=== PATIENT | male | born 1950 | race Caucasian/White ===

== ENCOUNTER → 2017-07-21 | Outpatient (CLI) | payer MEDICARE, BC | LOC: KOH-I 10:14 | DX: M25.561 Pain in right knee (principal); M25.461 Effusion, right knee | CPT/HCPCS: 73562 ==

== ENCOUNTER 2021-04-25 10:38 | Observation (INO) | payer BC, MEDICARE ==
[~2021-04-25] VITALS: Ht 180.3 cm; Wt 101.6 kg
[2021-04-25 11:08] LABS: HEMOGLOBIN 10.6 gm/dl (14.0-17.5); RED BLOOD COUNT 3.52 M/UL (4.20-5.50)
[2021-04-25 11:42] LABS: BUN/CREATININE RATIO 21 (0-10)
[2021-04-25] MEDS ORDERED: LOTREL 5-10 MG1 EACH PO (13:34)
[2021-04-25 14:54] LABS: HEMOGLOBIN 9.2 gm/dl (14.0-17.5)
[2021-04-25 22:47] LABS: HEMOGLOBIN 7.6 gm/dl (14.0-17.5)
[2021-04-26 06:54] LABS: HEMOGLOBIN 9.2 gm/dl (14.0-17.5)
[2021-04-26 06:57] LABS: RED BLOOD COUNT 3.05 M/UL (4.20-5.50)
[2021-04-26 07:18] LABS: BUN/CREATININE RATIO 23 (0-10)
[2021-04-26 18:53] LABS: HEMOGLOBIN 8.3 gm/dl (14.0-17.5)
[2021-04-26 18:55] LABS: RED BLOOD COUNT 2.73 M/UL (4.20-5.50); WHITE BLOOD COUNT 9.6 K/UL (4.5-11.0)
[2021-04-27 02:23] LABS: HEMOGLOBIN 7.9 gm/dl (14.0-17.5); RED BLOOD COUNT 2.64 M/UL (4.20-5.50); WHITE BLOOD COUNT 7.5 K/UL (4.5-11.0)
[2021-04-27 16:17] LABS: HEMOGLOBIN 8.9 gm/dl (14.0-17.5)
== END 2021-04-27 19:04 | disposition home or self-care (01) ==
LOC: ER1 10:38 → PROG CARE 12:02 → CDU 12:02 → PROG CARE 12:02
PROVIDERS: Emergency Medicine; Internal Medicine; Internal Medicine Gastroenterology; Physician Assistant; ADMIT Internal Medicine
DX: K62.5 Hemorrhage of anus and rectum (principal); D62 Acute posthemorrhagic anemia; K57.30 Diverticulosis of large intestine without perforation or abscess without bleeding; K64.0 First degree hemorrhoids; R55 Syncope and collapse; I10 Essential (primary) hypertension; Z79.899 Other long term (current) drug therapy; Z20.822 Contact with and (suspected) exposure to COVID-19
CPT/HCPCS: 36415; 36430; 80048; 80053; 82550; 82553; 83874; 84484; 85014; 85018; 85025; 85610; 85730; 86850; 86900; 86901; 86920; 93005; 99284; G0378; J2250; J3010; J7030; J7040; P9016; U0002